=== PATIENT | female | born 1960 | race Caucasian/White ===

== ENCOUNTER 2022-08-04 10:06 | Outpatient (CLI) | payer OTHER, SELFPAY | END 2022-08-04 10:07 | disposition home or self-care (01) | LOC: SPT 10:07 | PROVIDERS: Visit Provider Orthopaedic Surgery | DX: S82.831A Other fracture of upper and lower end of right fibula, initial encounter for closed fracture (principal); X58.XXXA Exposure to other specified factors, initial encounter | CPT/HCPCS: 97760; L4361 ==

== ENCOUNTER 2022-08-06 09:17 | Day surgery (SDC) | payer OTHER, SELFPAY ==
[2022-08-05 13:55] VITALS: BMI 36.6
[2022-08-06] VITALS (10 sets, daily range): BP systolic 131–169; BP diastolic 55–88; PULSE 73–82; RESP 14–18; TEMP 36.1–36.9; O2SAT 90–99
--- NOTE | 2022-08-06 | XR_ITS ---
WS: [id number] Exam: XR ankle RT 2V [id number] Date/Time of Exam: 08/06/2022 12:00 AM Reason For Exam: SURGICAL PROCEDURE Compared to outside radiographs performed 08/02/2022. AP and lateral intraoperative C-arm images of the right ankle are submitted. There is plate and screw fixation involving a fracture of the lower fibula in excellent position for healing. Avulsion fracture of the lower tip of the medial malleolus is noted. Small posterior tibial shelf fracture obscured by the fibular plate. No other significant finding on this limited series.
[2022-08-06] MEDS: acetaminophen 500 mg Tablet 1000 MG PO (09:53)
[2022-08-06] MEDS: sodium chloride 0.9% 1,000 ML 30 ML IV (09:53)
[2022-08-06] MEDS: CELEcoxib 200 mg Capsule 400 MG PO (09:54)
--- NOTE | 2022-08-06 11:20 | W.PM.OPSUD ---
Surgery/Procedure H&P Update DATE OF PROCEDURE: August 06, 2022 DATE H&P PERFORMED: 08/04/22 H&P UPDATE INFORMATION: I have reviewed H&P completed within last 30 days PREOP DIAGNOSIS: Fracture right ankle PLANNED PROCEDURE: Operation Date: 08/06/22 11:10 Proposed Procedures p ORIF right distal fibula/ 78353,S82.831A(Right) - Chadwick Horton MD
[2022-08-06] MEDS: ceFAZolin 2,000 MG in sodium chloride 0.9% (plus) 50 ML 100 MG IV (11:27)
--- NOTE | 2022-08-06 12:27 | PM.OP ---
Operative Report Date of procedure: August 06, 2022 Pre-op diagnosis: Preop Diagnosis right distal fibula fracture Post-op diagnosis: same Procedure done: Open reduction internal fixation right distal fibula Implants: Jocelyn Variax 9 hole semitubular plate Surgeon: Chadwick Horton Anesthesia: General Estimated blood loss (mL): 5 Tourniquet time (min): 29 Findings: Patient has a displaced oblique fracture of the distal fibula with shortening and posterior displacement of the posterior fragment. A small medial chip fragment was seen over the medial talus. No instability was noted with stress forces across the syndesmosis Condition: stable Disposition: PACU Brief History: The patient is a 62-year-old female who fell tripping over a gas hose refilling her car. She had immediate pain in her ankle with radiographs revealing a lateral malleolar fracture. There is significant shortening and posterior displacement of the distal fragment. Surgery was chosen to align the lateral malleolus and perform an examination under anesthesia to obtain a stable ankle Procedure: The patient was taken to the operating room and given 2 g of Ancef and a popliteal block. He was prepped and draped in the supine position with a large bump underneath the right hip. A timeout was performed. An 8 cm long incision was made from the tip of the fibula proximally along the shaft of the fibula and dissection carried down full-thickness to the distal fibula. The fracture was identified and the lateral fibular cortex freed the periosteum. Utilizing a reduction clamp the fibula was brought out to length and reduced. A 9 hole semitubular plate was contoured over the distal fibula. It was fixed proximally with 1 and distally with 2 nonlocking screws. 2 additional locking screws were placed adjacent to the nonlocking scews.. The ankle was stressed with the lateral displacing force across the talus and external rotation force with no displacement of the talus in the mortise. Syndesmotic fixation was not thought necessary. The wound was irrigated with saline. Deep tissues were closed with 0 and 2-0 Vicryl. The skin was closed with skin steve. Xeroform gauze 4 x 4's compressive Webril and Pipe wrap in a boot were applied. The patient was extubated taken recovery in stable condition.
[2022-08-06] MEDS: oxyCODONE 5 mg IR Tab/Cap PO (13:09)
--- NOTE | 2022-08-06 13:34 | ANES.PREANE2 ---
Pre-Anesthetic Assessment Height/Weight: Height 1.65 m Weight 99.79 kg Temp Pulse Resp BP Pulse Ox O2 Del Method 98.4 F 73 18 131/64 99 Room Air 08/06/22 13:06 08/06/22 13:13 08/06/22 13:13 08/06/22 13:13 08/06/22 13:13 08/06/22 13:13 Preop Diagnosis: Fracture right ankle Operation Date: 08/06/22 11:10 Proposed Procedures p ORIF right distal fibula/ 65030,S82.831A(Right) - Chadwick Horton MD Familial anesthetic complications: none Was Beta Jalil taken within 24 hours: N/A Was Clonidine taken within 24 hours: N/A Last intake: Intake Last Liquid Date 08/05/22 Last Liquid Time 21:30 Last Solid Date 08/05/22 Last Solid Time 16:00 Social No alcohol and No tobacco Exam alert, oriented x 3, clear to auscultation bilaterally and regular rate & rhythm Airway Submandibular: within normal limits Cervical ROM: within normal limits Mallampati: Class II Dentition: false Metabolic Morbid Obesity Anesthetic Plan ASA status: 2 Anesthesia: General and Regional (specify below) (right pop blk) Medications/Allergies Home Medications Medication Instructions Recorded Confirmed Last Taken Type CAM walker #1 ea 08/04/22 08/04/22 Unknown Rx oxycodone 5 mg tablet 5 mg PO Q4H PRN pain #40 tabs 08/06/22 Unknown Rx Allergies Allergy/AdvReac Type Severity Reaction Status Date / Time No Known Allergies Allergy Verified 08/05/22 13:54 Current Medications Generic Name Dose Route Start Last Admin Trade Name Freq PRN Reason Stop Dose Admin Sodium Chloride 1,000 mls @ 30 mls/hr 08/06/22 09:30 08/06/22 13:11 Sodium Chloride 0.9% IV 08/07/22 09:29 Infused .Q24H LIANNA Infusion PFS Anesthesia Social History (Updated 08/04/22 @ 08:53 by Guanaco Gandara LPN) Smoking and tobacco status: never smoked Alcohol intake: never Substance/Drug Use: never Data Anesthesia Cardiac Studies: No Data to Display Anesthesia Procedures Nerve Block Nerve Block 1: Main Anesthesia: general anesthesia Time Out Performed: Yes Consent: requested by attending/covering physician, from patient, risks and benefits reviewed and patient agrees to proceed Nerve block location: popliteal (right) Anesthesia monitors applied: pulse oximetry, EKG, BP cuff and oxygen Nerve block position: supine Anesthetic Used: ropivicaine 0.5% Amount of anesthesia used (mL): 30 Ultrasound used to: recognize landmarks Nerve Stimulator Used?: No Interscalene/Femoral BLK: 4 stimuplex 21 g needle used for position and inplane approach Injection: neg aspiration of heme Patient Tolerated Procedure: well Complications: none
--- NOTE | 2022-08-06 15:23 | ANE.PACU2 ---
Inpatient post-anesthesia follow up: Airway intact: Yes Vital signs: Temperature 98.4 F Pulse Rate 73 Respiratory Rate 18 Blood Pressure 131/64 Pulse Oximetry 99 Oxygen Delivery Me thod Room Air Oxygen Flow Rate Fraction of Inspir ed Oxygen Hydration adequate: Yes Nausea and vomiting: No Pain level: 2 Mental status: Baseline
== END 2022-08-06 13:32 | disposition home or self-care (01) ==
PROVIDERS: Visit Provider Orthopaedic Surgery
PROC: (CPT 27792; principal; 2022-08-06 11:00)
DX: S82.431A Displaced oblique fracture of shaft of right fibula, initial encounter for closed fracture (principal); W18.09XA Striking against other object with subsequent fall, initial encounter; E66.01 Morbid (severe) obesity due to excess calories; Z68.36 Body mass index [BMI] 36.0-36.9, adult
CPT/HCPCS: 27792; 73600; 76000; C1713; J0690; J1100; J1580; J2250; J2405; J2704; J2795; J3010; J7030

== ENCOUNTER → 2022-09-09 08:58 | Outpatient (BNVA) | payer OTHER, SELFPAY | PROVIDERS: Visit Provider Orthopaedic Surgery | DX: Z98.890 Other specified postprocedural states (principal); S82.831D Other fracture of upper and lower end of right fibula, subsequent encounter for closed fracture with routine healing; X58.XXXD Exposure to other specified factors, subsequent encounter | CPT/HCPCS: 73600 ==

== ENCOUNTER → 2022-09-30 08:50 | Outpatient (BNVA) | payer OTHER, SELFPAY | PROVIDERS: Visit Provider Orthopaedic Surgery | DX: Z98.890 Other specified postprocedural states (principal); Z87.81 Personal history of (healed) traumatic fracture | CPT/HCPCS: 73600 ==

== ENCOUNTER → 2022-11-06 10:13 | Outpatient (BNVA) | payer OTHER, SELFPAY | PROVIDERS: Visit Provider Nurse Practitioner Family | DX: Z98.890 Other specified postprocedural states (principal); Z87.81 Personal history of (healed) traumatic fracture | CPT/HCPCS: 73610 ==

== ENCOUNTER → 2022-12-30 14:14 | Outpatient (BNVA) | payer OTHER, SELFPAY | PROVIDERS: Visit Provider Specialist | DX: Z98.890 Other specified postprocedural states (principal); Z87.81 Personal history of (healed) traumatic fracture; S99.911D Unspecified injury of right ankle, subsequent encounter; X58.XXXD Exposure to other specified factors, subsequent encounter | CPT/HCPCS: 73610 ==

== ENCOUNTER → 2024-06-26 15:45 | Outpatient (BNVA) | payer BC, SELFPAY | PROVIDERS: PCP Nurse Practitioner; Visit Provider Nurse Practitioner | DX: I10 Essential (primary) hypertension (principal) | CPT/HCPCS: 80053; 80061; 84443 ==

== ENCOUNTER → 2024-12-04 11:35 | Outpatient (BNVA) | payer BC, SELFPAY | PROVIDERS: PCP Nurse Practitioner; Visit Provider Nurse Practitioner | DX: I10 Essential (primary) hypertension (principal) | CPT/HCPCS: 80053 ==